=== PATIENT | female | born 1960 | race Caucasian/White ===

== ENCOUNTER 2018-01-04 14:29 | Emergency (ER) | payer OTHER ==
--- NOTE | 2018-01-04 15:09 | ER Document Report ---
ED Medical Screen (RME) - General Chief Complaint: Vaginal Discharge Stated Complaint: VAGINAL/RECTAL PAIN Time Seen by Provider: 01/04/18 15:02 Notes: 57-year-old female patient with history of rheumatoid arthritis taking methotrexate and Xeljanz reports a 2-week history of rectal and vaginal pain. She reports the rectal and vaginal pain is both on the inside and the outside with pain on wiping. She reports there has been a vaginal discharge with a "nasty color and strong odor". She also feels like there is something inside the rectum although she is having bowel movements. She was sent here from the [place] to be evaluated because they did not have a doctor that could do the type of exam she needs and the lab was closed. I have greeted and performed a rapid initial assessment of this patient. A comprehensive ED assessment and evaluation of the patient, analysis of test results and completion of the medical decision making process will be conducted by additional ED providers. TRAVEL OUTSIDE OF THE [place] IN LAST 30 DAYS: No - Related Data Allergies/Adverse Reactions: No Known Allergies Allergy (Unverified 01/04/18 14:33) Physical Exam - Vital signs Vitals: Temp Pulse Resp BP Pulse Ox 98.3 F 55 L 16 138/73 H 100 01/04/18 14:48 01/04/18 14:48 01/04/18 14:48 01/04/18 14:48 01/04/18 14:48 Course - Vital Signs Vital signs: Temp Pulse Resp BP Pulse Ox 98.3 F 55 L 16 138/73 H 100 01/04/18 14:48 01/04/18 14:48 01/04/18 14:48 01/04/18 14:48 01/04/18 14:48
--- NOTE | 2018-01-04 16:02 | ER Document Report ---
ED GI/ - General Chief Complaint: Vaginal Discharge Stated Complaint: VAGINAL/RECTAL PAIN Time Seen by Provider: 01/04/18 15:02 Mode of Arrival: Ambulatory Information source: Patient Notes: Patient presents with a 2-week history of vaginal and rectal discomfort. Patient states she has had some vaginal discharge and feels like she has redness and swelling to her vulva. Patient denies any fever or constipation. Patient does report a recent new sexual partner 2 weeks ago. TRAVEL OUTSIDE OF THE [place] IN LAST 30 DAYS: No - HPI Patient complains to provider of: Vaginal discharge, Vaginal pain. No: Abdominal pain, Diarrhea, Pelvic pain Onset: Other - 2 weeks Timing/Duration: Persistent Quality of pain: Burning Pain Level: 4 Location: Vaginal Vaginal bleeding (Compared to normal period): None Sexual history: Active Associated symptoms: Dysuria, Vaginal discharge. denies: Diarrhea, Fever, Nausea, Urinary hesitancy, Urinary frequency, Vomiting Exacerbated by: Denies Relieved by: Denies Similar symptoms previously: No Recently seen / treated by doctor: No - Related Data Allergies/Adverse Reactions: No Known Allergies Allergy (Unverified 01/04/18 14:33) Past Medical History - General Information source: Patient - Social History Smoking Status: Never Smoker Chew tobacco use (# tins/day): No Frequency of alcohol use: Social Drug Abuse: None Occupation: vending route servicer Family History: Reviewed & Not Pertinent Patient has suicidal ideation: No Patient has homicidal ideation: No Renal/ Medical History: Denies: Hx Peritoneal Dialysis Musculoskeletal Medical History: Reports Hx Arthritis - Rheumatoid Past Surgical History: Reports: Hx Section - x1, Hx Genitourinary Surgery - nephrectomy Review of Systems - Review of Systems Constitutional: No symptoms reported. denies: Fever, Recent illness EENT: No symptoms reported Cardiovascular: No symptoms reported Respiratory: No symptoms reported. denies: Cough, Short of breath Gastrointestinal: No symptoms reported. denies: Abdominal pain, Nausea, Vomiting Genitourinary: Burning, Dysuria Female Genitourinary: Vaginal discharge, Other - Vaginal pain. denies: Vaginal bleeding Musculoskeletal: No symptoms reported. denies: Back pain Skin: Other - Redness to perineum Hematologic/Lymphatic: No symptoms reported Neurological/Psychological: No symptoms reported Physical Exam - Vital signs Vitals: Temp Pulse Resp BP Pulse Ox 98.3 F 55 L 16 138/73 H 100 01/04/18 14:48 01/04/18 14:48 01/04/18 14:48 01/04/18 14:48 01/04/18 14:48 - General General appearance: Appears well, Alert In distress: None - HEENT Head: Normocephalic, Atraumatic Eyes: Normal Conjunctiva: Normal Nasal: Normal Mouth/Lips: Normal Mucous membranes: Normal Pharynx: Normal Neck: Normal, Supple. No: Lymphadenopathy - Respiratory Respiratory status: No respiratory distress Chest status: Nontender Breath sounds: Normal. No: Rales, Rhonchi, Stridor, Wheezing Chest palpation: Normal - Cardiovascular Rhythm: Regular Heart sounds: S1 appreciated, S2 appreciated Murmur: No - Abdominal Inspection: Normal Distension: No distension Bowel sounds: Normal Tenderness: Nontender Organomegaly: No organomegaly - Genitourinary External exam: Lesions - Patient with 3 tender shallow ulcerations to the perineum with one at the vaginal introitus Speculum exam: Cervix closed, Vaginal discharge Vaginal bleeding: None Bimanuel exam: Normal. No: Cervical motion tender - Back Back: Normal, Nontender. No: CVA tenderness - Extremities General upper extremity: Normal inspection, Normal ROM General lower extremity: Normal inspection, Normal ROM - Neurological Neuro grossly intact: Yes Cognition: Normal Arab Coma Scale Eye Opening: Spontaneous Arab Coma Scale Verbal: Oriented Arab Coma Scale Motor: Obeys Commands Rubi Coma Scale Total: 15 - Psychological Associated symptoms: Normal affect, Normal mood - Skin Skin Temperature: Warm Skin Moisture: Dry Skin Color: Normal Course - Re-evaluation Re-evalutation: 01/05/18 Patient with physical exam findings worrisome for herpes. Culture will be sent and patient will be treated empirically at this time. Patient encouraged to follow-up with a primary doctor for further evaluation. Urine culture will be sent as patient has a history of previously donating the right kidney. No concern for pyelonephritis or any obstructive uropathy at this time. - Vital Signs Vital signs: Temp Pulse Resp BP Pulse Ox 97.6 F 56 L 18 135/65 H 10 L 01/04/18 17:47 01/04/18 17:47 01/04/18 17:47 01/04/18 17:47 01/04/18 17:47 - Laboratory Result Diagrams: 01/04/18 15:45 11/23/18 15:45 Laboratory results interpreted by me: 01/04/18 01/04/18 01/04/18 15:45 15:45 15:45 MCV 100 H MCH 34.1 H RDW 15.8 H Total Bilirubin 1.6 H Urine Ketones TRACE H Urine Blood SMALL H Ur Leukocyte Esterase LARGE H Labs- Entire Visit 01/04/18 01/04/18 01/04/18 15:45 15:45 15:45 WBC 5.8 RBC 3.73 Hgb 12.7 Hct 37.1 MCV 100 H MCH 34.1 H MCHC 34.3 RDW 15.8 H Plt Count 225 Seg Neutrophils % 73.0 Lymphocytes % 20.0 Monocytes % 5.6 Eosinophils % 1.0 Basophils % 0.4 Absolute Neutrophils 4.3 Absolute Lymphocytes 1.2 Absolute Monocytes 0.3 Absolute Eosinophils 0.1 Absolute Basophils 0.0 Sodium 142.9 Potassium 4.4 Chloride 105 Carbon Dioxide 28 Anion Gap 10 BUN 10 Creatinine 0.90 Est GFR ( Amer) > 60 Est GFR (Non-Af Amer) > 60 Glucose 88 Calcium 9.4 Total Bilirubin 1.6 H Direct Bilirubin 0.4 Neonat Total Bilirubin Not Reportable Neonat Direct Bilirubin Not Reportable Neonat Indirect Bili Not Reportable AST 35 ALT 30 Alkaline Phosphatase 100 Total Protein 6.9 Albumin 4.2 Urine Color YELLOW Urine Appearance SLIGHTLY-CLOUDY Urine pH 5.0 Ur Specific [place] 1.009 Urine Protein NEGATIVE Urine Glucose (UA) NEGATIVE Urine Ketones TRACE H Urine Blood SMALL H Urine Nitrite NEGATIVE Urine Bilirubin NEGATIVE Urine Urobilinogen NEGATIVE Ur Leukocyte Esterase LARGE H Urine WBC (Auto) 162 Urine RBC (Auto) 2 Urine Bacteria (Auto) 2+ Squamous Epi Cells Auto <1 Urine Mucus (Auto) FEW Urine Ascorbic Acid NEGATIVE Epi Cells (Wet Prep) Bacteria (Wet Prep) Trichomonas (Wet Prep) Vaginal WBC Vaginal RBC Vaginal Yeast Chlamydia DNA (PCR) N.gonorrhoeae DNA (PCR) 01/04/18 01/04/18 16:22 16:22 WBC RBC Hgb Hct MCV MCH MCHC RDW Plt Count Seg Neutrophils % Lymphocytes % Monocytes % Eosinophils % Basophils % Absolute Neutrophils Absolute Lymphocytes Absolute Monocytes Absolute Eosinophils Absolute Basophils Sodium Potassium Chloride Carbon Dioxide Anion Gap BUN Creatinine Est GFR ( Amer) Est GFR (Non-Af Amer) Glucose Calcium Total Bilirubin Direct Bilirubin Neonat Total Bilirubin Neonat Direct Bilirubin Neonat Indirect Bili AST ALT Alkaline Phosphatase Total Protein Albumin Urine Color Urine Appearance Urine pH Ur Specific Mountain Urine Protein Urine Glucose (UA) Urine Ketones Urine Blood Urine Nitrite Urine Bilirubin Urine Urobilinogen Ur Leukocyte Esterase Urine WBC (Auto) Urine RBC (Auto) Urine Bacteria (Auto) Squamous Epi Cells Auto Urine Mucus (Auto) Urine Ascorbic Acid Epi Cells (Wet Prep) 3+ EPITHELIALS SEEN Bacteria (Wet Prep) 4+ BACTERIA SEEN Trichomonas (Wet Prep) NO TRICHOMONAS SEEN Vaginal WBC 4+ WBCS SEEN Vaginal RBC NO RBCS SEEN Vaginal Yeast NO YEAST SEEN Chlamydia DNA (PCR) NOT DETECTED N.gonorrhoeae DNA (PCR) NOT DETECTED Discharge - Discharge Clinical Impression: Vaginal pain, Vaginal discharge, Skin lesion UTI (urinary tract infection) Qualifiers: Urinary tract infection type: site unspecified Hematuria presence: with hematuria Qualified Code(s): N39.0 - Urinary tract infection, site not specified Condition: Stable Disposition: HOME, SELF-CARE Instructions: Azithromycin ([facility]), Genital Herpes ([facility]), Rocephin ([facility]), Urinary Anesthetic Agent ([facility]), Urinary Tract Infection ([facility]) Additional Instructions: Return immediately for any new or worsening symptoms Followup with your primary care provider, call tomorrow to make a followup appointment Cultures are pending, will call if you need any different treatment Prescriptions: Cephalexin Monohydrate [Keflex 500 mg Capsule] 500 mg PO Q6H 5 Days capsule Metronidazole [Flagyl 500 mg Tablet] 500 mg PO BID #14 tablet Phenazopyridine HCl [Pyridium 200 mg Tablet] 200 mg PO TID #15 tablet Valacyclovir HCl [Valacyclovir] 1,000 mg PO BID #14 tablet Referrals: [facility] [Primary Care Provider] - 01/07/18
[2018-01-04 16:05] LABS: ABSOLUTE EOSINOPHILS # (AUTO) 0.1 10^3/uL (0.0-0.6); BASOPHILS % (AUTO) 0.4 % (0-2); TOTAL CELLS COUNTED % (AUTO) 100 %
[2018-01-04 16:13] LABS: ABSOLUTE LYMPHOCYTES (AUTO) 1.2 10^3/uL (0.5-4.7); ABSOLUTE MONOCYTES (AUTO) 0.3 10^3/uL (0.1-1.4); ABSOLUTE NEUT (AUTO) 4.3 10^3/uL (1.7-8.2); HEMATOCRIT 37.1 % (36.0-47.0); HEMOGLOBIN 12.7 g/dL (12.0-15.5); MEAN CORPUSCULAR HEMOGLOBIN 34.1 pg (27.0-33.4); MEAN CORPUSCULAR HGB CONC 34.3 g/dL (32.0-36.0); MEAN CORPUSCULAR VOLUME 100 fl (80-97); MONOCYTES % (AUTO) 5.6 % (3-13); PLATELET COUNT 225 10^3/uL (150-450); RED BLOOD COUNT 3.73 10^6/uL (3.72-5.28); RED CELL DISTRIBUTION WIDTH 15.8 % (11.5-14.0); WHITE BLOOD COUNT 5.8 10^3/uL (4.0-10.5)
[2018-01-04 16:18] LABS: APPEARANCE,URINE SLIGHTLY-CLOUDY; BILIRUBIN,URINE NEGATIVE (NEGATIVE); COLOR,URINE YELLOW; GLUCOSE, URINE NEGATIVE (NEGATIVE); KETONES,URINE TRACE mg/dL (NEGATIVE); LEUKOCYTE ESTERASE,URINE LARGE (NEGATIVE); NITRITE,URINE NEGATIVE (NEGATIVE); PROTEIN,URINE NEGATIVE (NEGATIVE); URINE SPECIFIC GRAVITY 1.009; UROBILINOGEN,URINE NEGATIVE mg/dL (<2.0)
[2018-01-04 16:25] LABS: ALANINE AMINOTRANSFERASE 30 U/L (9-52); ALBUMIN 4.2 g/dL (3.5-5.0); ALKALINE PHOSPHATASE 100 U/L (38-126); ANION GAP 10 (5-19); ASPARTATE AMINO TRANSFERASE 35 U/L (14-36); BILIRUBIN,DIRECT 0.4 mg/dL (0.0-0.4); BILIRUBIN,TOTAL 1.6 mg/dL (0.2-1.3); BLOOD UREA NITROGEN 10 mg/dL (7-20); CALCIUM 9.4 mg/dL (8.4-10.2); CARBON DIOXIDE 28 mmol/L (22-30); CHLORIDE 105 mmol/L (98-107); GLUCOSE 88 mg/dL (75-110); POTASSIUM 4.4 mmol/L (3.6-5.0); SODIUM 142.9 mmol/L (137-145); TOTAL PROTEIN 6.9 g/dL (6.3-8.2)
[2018-01-04] MEDS ORDERED: CEFTRIAXONE INJ 1000 MG VIAL IM ONE (16:29)
[2018-01-04] MEDS ORDERED: AZITHROMYCIN 250 MG TABLET PO ONE (16:30)
[2018-01-04] MEDS ORDERED: VALACYCLOVIR HCL 500 MG TABLET PO ONE (16:30)
[2018-01-04] MEDS ORDERED: LIDOCAINE 1% INJ-PF (10 MG/ML) 30 ML SDV INJ ONE (16:30)
[2018-01-04 16:47] LABS: RBCS (WET MOUNT) NO RBCS SEEN; T.VAGINALIS (WET MOUNT) NO TRICHOMONAS SEEN; WBCS (WET MOUNT) 4+ WBCS SEEN; YEAST (WET MOUNT) NO YEAST SEEN
[2018-01-04 16:48] LABS: BACTERIA (WET MOUNT) 4+ BACTERIA SEEN; EPITHELIALS (WET MOUNT) 3+ EPITHELIALS SEEN
[2018-01-04 17:48] VITALS: BP 135/65
[2018-01-04 18:08] LABS: CHLAM PCR NOT DETECTED (NOT DETECT); GON PCR NOT DETECTED (NOT DETECT)
== END 2018-01-04 17:48 | disposition home or self-care (01) ==
LOC: ER 14:29
DX: N39.0 Urinary tract infection, site not specified (principal); R10.2 Pelvic and perineal pain; N89.8 Other specified noninflammatory disorders of vagina; L98.9 Disorder of the skin and subcutaneous tissue, unspecified; K62.89 Other specified diseases of anus and rectum; R30.0 Dysuria
CPT/HCPCS: 99283; 96372; 36415; 87086; 87210; 85025; 87088; 80053; 81001; 87250; 87186; 87491; 87591; J3490; J0696

== ENCOUNTER 2018-06-05 16:43 | Emergency (ER) | payer OTHER ==
[2018-06-05 16:50] VITALS: BP 147/89
[2018-06-05] MEDS ORDERED: MORPHINE SULFATE 10 MG/ML INJ IV ONE (19:14)
[2018-06-05] MEDS ORDERED: ONDANSETRON HCL INJ/PF 4 MG/2 ML SDV IV ONE (19:14)
--- NOTE | 2018-06-05 19:16 | ER Document Report ---
ED Medical Screen (RME) - General Chief Complaint: Flank Pain Stated Complaint: BACK/SIDE PAIN Time Seen by Provider: 06/05/18 19:06 Primary Care Provider: NICKY,TEE [Primary Care Provider] - Follow up as needed Mode of Arrival: Ambulatory Information source: Patient TRAVEL OUTSIDE OF THE [place] IN LAST 30 DAYS: No - HPI Patient complains to provider of: LEFT FLANK PAIN Notes: 06/05/18 19:14 Patient here with complaints of left flank pain. Pain is been constant and severe. She has had nausea, no vomiting. She does complain of some mild diarrhea. She only has a left kidney she donated her right kidney to a family member in the 80s. Patient was also complaining of some "heartburn" last evening. That seems to have resolved. She denies any numbness, tingling, weakness. Exam Nontoxic, no distress. Tenderness to palpation of the left upper quadrant, left-sided CVA tenderness. No rash. Normal pulses to the upper and lower extremities. Lungs clear and equal throughout. Plan CBC, CMP, urine, lipase, EKG, troponin, chest x-ray, CT abdomen pelvis. An initial examination was made on the patient as part of the triage process, and it was determined a more comprehensive evaluation was necessary. Initial labs were ordered and patient was transferred to another provider in the ED who assumed care and finished evaluation and plan. - Related Data Allergies/Adverse Reactions: No Known Allergies Allergy (Verified 06/05/18 16:46) Past Medical History - Social History Chew tobacco use (# tins/day): No Frequency of alcohol use: Social Drug Abuse: None Renal/ Medical History: Denies: Hx Peritoneal Dialysis Musculoskeltal Medical History: Reports Hx Arthritis - Rheumatoid Past Surgical History: Reports: Hx Section - x1, Hx Genitourinary Surgery - nephrectomy 1985, Hx Gynecologic Surgery Physical Exam - Vital signs Vitals: Temp Pulse Resp BP Pulse Ox 98.4 F 85 16 147/89 H 100 06/05/18 16:49 06/05/18 16:49 06/05/18 16:49 06/05/18 16:49 06/05/18 16:49 Course - Vital Signs Vital signs: Temp Pulse Resp BP Pulse Ox 98.4 F 85 16 147/89 H 100 06/05/18 16:49 06/05/18 16:49 06/05/18 16:49 06/05/18 16:49 06/05/18 16:49 Doctor's Discharge - Discharge Referrals: [facility] [Primary Care Provider] - Follow up as needed
--- NOTE | 2018-06-05 19:44 | RADIOLOGY REPORT (SQ) ---
EXAM DESCRIPTION: CHEST SINGLE VIEW COMPLETED DATE/TIME: 06/05/2018 7:29 pm REASON FOR STUDY: CP COMPARISON: None. EXAM PARAMETERS: NUMBER OF VIEWS: One view. TECHNIQUE: Single frontal radiographic view of the chest acquired. RADIATION DOSE: NA LIMITATIONS: None. FINDINGS: LUNGS AND PLEURA: No opacities, masses or pneumothorax. No pleural effusion. MEDIASTINUM AND HILAR STRUCTURES: No masses. Contour normal. HEART AND VASCULAR STRUCTURES: Heart normal in size. Normal vasculature. BONES: No acute findings. HARDWARE: None in the chest. OTHER: No other significant finding. IMPRESSION: NO ACUTE RADIOGRAPHIC FINDING IN THE CHEST. TECHNICAL DOCUMENTATION: JOB ID: [id number] [place]-72 2010 [employer]- All Rights Reserved Reading location - IP/workstation name: [email or web address]
[2018-06-05 20:01] LABS: ABSOLUTE EOSINOPHILS # (AUTO) 0.1 10^3/uL (0.0-0.6); ABSOLUTE LYMPHOCYTES (AUTO) 1.4 10^3/uL (0.5-4.7); ABSOLUTE MONOCYTES (AUTO) 0.6 10^3/uL (0.1-1.4); ABSOLUTE NEUT (AUTO) 4.8 10^3/uL (1.7-8.2); BASOPHILS % (AUTO) 0.5 % (0-2); EOSINOPHILS % (AUTO) 1.4 % (0-6); HEMOGLOBIN 13.8 g/dL (12.0-15.5); LYMPHOCYTES % (AUTO) 20.3 % (13-45); MEAN CORPUSCULAR HEMOGLOBIN 35.1 pg (27.0-33.4); MEAN CORPUSCULAR HGB CONC 34.4 g/dL (32.0-36.0); MEAN CORPUSCULAR VOLUME 102 fl (80-97); MONOCYTES % (AUTO) 8.8 % (3-13); PLATELET COUNT 227 10^3/uL (150-450); RED BLOOD COUNT 3.92 10^6/uL (3.72-5.28); RED CELL DISTRIBUTION WIDTH 16.7 % (11.5-14.0); TOTAL CELLS COUNTED % (AUTO) 100 %; WHITE BLOOD COUNT 6.9 10^3/uL (4.0-10.5)
[2018-06-05 20:07] LABS: APPEARANCE,URINE SLIGHTLY-CLOUDY; BILIRUBIN,URINE NEGATIVE (NEGATIVE); COLOR,URINE YELLOW; GLUCOSE, URINE NEGATIVE (NEGATIVE); KETONES,URINE NEGATIVE (NEGATIVE); LEUKOCYTE ESTERASE,URINE LARGE (NEGATIVE); NITRITE,URINE NEGATIVE (NEGATIVE); PROTEIN,URINE NEGATIVE (NEGATIVE); URINE SPECIFIC GRAVITY 1.004; UROBILINOGEN,URINE NEGATIVE mg/dL (<2.0)
[2018-06-05 20:43] LABS: ALANINE AMINOTRANSFERASE 29 U/L (9-52); ALBUMIN 3.9 g/dL (3.5-5.0); ALKALINE PHOSPHATASE 94 U/L (38-126); ANION GAP 5 (5-19); ASPARTATE AMINO TRANSFERASE 32 U/L (14-36); BILIRUBIN,DIRECT 0.2 mg/dL (0.0-0.4); BILIRUBIN,TOTAL 1.6 mg/dL (0.2-1.3); BLOOD UREA NITROGEN 15 mg/dL (7-20); CALCIUM 9.4 mg/dL (8.4-10.2); CARBON DIOXIDE 32 mmol/L (22-30); CHLORIDE 102 mmol/L (98-107); GLUCOSE 90 mg/dL (75-110); LIPASE 74.5 U/L (23-300); POTASSIUM 4.2 mmol/L (3.6-5.0); TOTAL PROTEIN 6.9 g/dL (6.3-8.2)
--- NOTE | 2018-06-05 22:09 | RADIOLOGY REPORT (SQ) ---
CT ABDOMEN PELVIS WITHOUT IV CONTRAST HISTORY: Left flank pain. COMPARISON: None. TECHNIQUE: CT scan of the abdomen and pelvis was performed without IV contrast. This exam was performed according to our departmental dose-optimization program, which includes automated exposure control, adjustment of the mA and/or kV according to patient size and/or use of iterative reconstruction technique. FINDINGS: The lung bases are clear. No pleural or pericardial effusions. There is no hiatal hernia. The liver, spleen, pancreas, gallbladder, left adrenal gland, and left kidney are unremarkable. The right adrenal gland and kidney are absent. No urinary stones are seen. The pelvic organs are also unremarkable. No small bowel obstruction. There has been a prior appendectomy. There is no evidence of diverticulitis. No intraperitoneal free fluid or free air is identified. The aorta is normal caliber. No acute osseous findings are appreciated. There is no body wall hernia. IMPRESSION: 1. No acute abdominal or pelvic pathology. 2. Solitary left kidney.
--- NOTE | 2018-06-06 08:49 | EKG REPORT ---
SEVERITY:- ABNORMAL ECG - SINUS RHYTHM LEFT ATRIAL ABNORMALITY : Confirmed by: Elvis Erickson MD 06-Jun-2018 08:48:48
== END 2018-06-05 22:26 | disposition left against medical advice (07) ==
LOC: ER 16:43
DX: R10.9 Unspecified abdominal pain (principal); R11.0 Nausea; R19.7 Diarrhea, unspecified; R12 Heartburn
CPT/HCPCS: 93005; 99281; 96374; 96375; 36415; 83690; 85025; 80053; 81001; 84484; 71045; 74176; 93010; J2270; J2405

== ENCOUNTER 2019-02-02 09:26 | Emergency (ER) | payer OTHER ==
[2019-02-02 09:36] VITALS: BP 133/88
--- NOTE | 2019-02-02 10:52 | ER Document Report ---
HPI - HPI Time Seen by Provider: 02/02/19 10:32 Pain Level: 1 Context: Healthy 58-year-old female presents the emergency department with acute sinus congestion, postnasal drip, and upper respiratory symptoms x1 day. Patient is concerned because a couple of months ago she had acute sinusitis that lasted over a month requiring antibiotic treatment. Patient states that today she has bilateral ear fullness and throbbing, throat irritation from postnasal drip, and significant sinus pressure over the frontal and maxillary sinuses. Denies fevers or chills, denies vision changes, denies cough, denies shortness of breath or chest pain, denies wheezing, denies nausea or vomiting, denies abdominal pain. - EENT EENT: REPORTS: Ear Pain - RESPIRATORY Respiratory: REPORTS: Coughing Past Medical History - Social History Smoking Status: Never Smoker Chew tobacco use (# tins/day): No Frequency of alcohol use: Rare Drug Abuse: None Family History: Reviewed & Not Pertinent Patient has suicidal ideation: No Patient has homicidal ideation: No Renal/ Medical History: Denies: Hx Peritoneal Dialysis Musculoskeletal Medical History: Reports Hx Arthritis - Rheumatoid Past Surgical History: Reports: Hx Section - x1, Hx Genitourinary Surgery - nephrectomy 1985, Hx Gynecologic Surgery Vertical Provider Document - CONSTITUTIONAL Notes: PHYSICAL EXAMINATION: Reviewed vital signs and charting by RN GENERAL: Alert, interacts well. No acute distress. HEAD: Normocephalic, atraumatic. EYES: Pupils equal and round. Extraocular movements intact. ENT: Oral mucosa moist, tongue midline, no erythema of the posterior oropharynx or tonsils. Bilateral TMs visualized, pearly hawkins, nonbulging, no erythema, no effusions bilateral NECK: Full range of motion. Trachea midline. LUNGS: Clear to auscultation bilaterally, no wheezes, rales, or rhonchi. No respiratory distress. HEART: Regular rate and rhythm. No murmur ABDOMEN: soft, non-tender. No distention. Bowel sounds present EXTREMITIES: Moves all 4 extremities spontaneously. No edema, No cyanosis. PSYCH: Normal affect, normal mood. SKIN: Warm, dry, normal turgor. No rashes or lesions noted. - INFECTION CONTROL TRAVEL OUTSIDE OF THE [place] IN LAST 30 DAYS: No Course - Re-evaluation Re-evalutation: 02/02/19 10:46 Presentation is most consistent with a viral upper respiratory infection. Patient is overall well appearance, vitals within normal limits, well-hydrated. Patient denies any headache, neck pain, and has no evidence of meningismus on examination. Lungs are clear bilaterally. No evidence of respiratory distress. Based on clinical exam and history, I do not suspect an acute pneumonia, meningitis, strep pharyngitis, or an acute encephalitis. No laboratory or imaging testing is indicated at this time. Will discharge patient with return precautions and followup recommendations. They are in agreement this plan have verbalized understanding return precautions. - Vital Signs Vital signs: Temp Pulse Resp BP Pulse Ox 97.8 F 66 16 133/88 H 100 02/02/19 10:26 02/02/19 09:34 02/02/19 10:26 02/02/19 09:34 02/02/19 10:26 Discharge - Discharge Clinical Impression: Acute rhinosinusitis, Postnasal drip, Acute upper respiratory infection, unspecified Condition: Good Disposition: HOME, SELF-CARE Additional Instructions: You have been seen and treated in the emergency department for an upper respiratory infection and sinus pressure. These are typically caused by viruses and do not respond to antibiotics. Please make sure you using any prescription medications as prescribed. Please also continue to take [id number] Tylenol and Motrin for your generalized body aches, fever. Please continue to take your Flonase, purchase [id number] Afrin and use it for 3 days ONLY, and you can purchase a box of Sudafed with the active ingredient pseudoephedrine from the pharmacist behind the counter and take it for 3 to 5 days. Like I said, you will have to sign for it and you really need to increase your hydration when taking this medication. Please stay well-hydrated and get plenty of rest. Please follow-up with your primary care provider in the next 24 to 48 hours. Please return to the emergency room should you have any other concerning symptoms.
== END 2019-02-02 10:55 | disposition home or self-care (01) ==
LOC: ER 09:26
DX: J01.90 Acute sinusitis, unspecified (principal); J06.9 Acute upper respiratory infection, unspecified; R09.81 Nasal congestion; R09.82 Postnasal drip; R09.89 Other specified symptoms and signs involving the circulatory and respiratory systems; R05 Cough; H92.09 Otalgia, unspecified ear
CPT/HCPCS: 99283